=== PATIENT | female | born 1990 | race American Indian/Alaskan Native ===

== ENCOUNTER 2018-01-06 21:53 | Inpatient (IN) | payer OTHER ==
[2018-01-06 22:33] VITALS: BMI 32.5
[2018-01-06 22:54] LABS: SQUAMOUS EPITHIAL 9 /hpf (0-5); URINE BACTERIA RARE (<OCC); URINE BILIRUBIN NEGATIVE (NEGATIVE); URINE BLOOD NEGATIVE (NEGATIVE); URINE CLARITY Hazy (Clear); URINE COLOR Yellow (YELLOW); URINE GLUCOSE (UA) NORMAL (Normal); URINE LEUKOCYTE ESTERASE 2+ Leu/uL (Negative); URINE PROTEIN NEGATIVE (NEGATIVE)
[2018-01-06] MEDS ORDERED: Lactated Ringer's 1,000 ML IV ONE (23:34)
[2018-01-06] MEDS ORDERED: Penicillin G 5 Million Unit Vial IVPB ONE (23:34)
[2018-01-06] MEDS ORDERED: Lactated Ringer's 1,000 ML IV SCH (23:45)
[2018-01-07] MEDS ORDERED: Penicillin G 5 Million Unit Vial IVPB ONE (00:03)
[2018-01-07 00:29] LABS: BASO % 0.1 % (0.0-2.0); EOS # 0.1 K/uL (0.0-0.7); EOS % 0.9 % (0.0-4.0); HEMOGLOBIN 8.1 g/dL (11.0-16.0); LYMPH # 3.3 K/uL (1.0-4.3); LYMPH % 30.4 % (20.0-40.0); MEAN CELL VOLUME 62.1 fL (81.0-99.0); MEAN CORPUSCULAR HEMOGLOBIN 19.3 pg (27.0-31.0); MEAN CORPUSCULAR HGB CONC 31.1 g/dL (33.0-37.0); MEAN PLATELET VOLUME 7.8 fL (7.2-11.7); MONO # 0.8 K/uL (0.0-0.8); MONO % 6.9 % (0.0-10.0); NEUT # 6.7 K/uL (1.8-7.0); NEUT % 61.7 % (50.0-75.0); NRBC % 0.2 % (0.0-2.0); RBC 4.17 Mil/uL (3.80-5.20); RED CELL DISTRIBUTION WIDTH 17.8 % (11.5-14.5); WHITE BLOOD COUNT 10.9 K/uL (4.8-10.8)
[2018-01-07 00:42] LABS: ALB/GLOB RATIO 1.1 (1.0-2.1); ALBUMIN 3.6 g/dL (3.5-5.0); ALT/SGPT 26 U/L (9-52); AST/SGOT 17 U/L (14-36); BLOOD UREA NITROGEN 10 mg/dL (7-17); CALCIUM 9.1 mg/dl (8.6-10.4); GFR NON-AFRICAN AMERICAN > 60
[2018-01-07 01:13] LABS: HEPATITIS B SURFACE AG Negative (NEGATIVE)
[2018-01-07 01:49] LABS: BARBITURATES, UR NEGATIVE (NEGATIVE); BENZODIAZEPINES, UR NEGATIVE (NEGATIVE); OPIATES, UR NEGATIVE (NEGATIVE); PHENCYCLIDINE, UR NEGATIVE (NEGATIVE)
--- NOTE | 2018-01-07 06:59 | OBHP ---
Datetime: 01/06/2018 23:10 IP Adm Impression: Term, intrauterine ; Intact Membranes IP Admit Plan: Admit to unit; Observation/Evaluation Admit Comment, IP Provider: 27 yo female with an IUP at 40 weeks, per patient and has no PN C records. Admits to having PNC during 1st and 2nd trimester in [facility], but she moved to [place] and not seen a nybody. Denies any significant past Medical and /surgical HX, Presented with c/o of Decrease FM and contrctions since this AM. + FM, UA showed mild Dehydration only UC's no detected per monitor but SVE /-3 Will admit for anticipated vaginal delivery Will order admit/WI labs, US Pelvic Type - PN: Adequate Extremities - PN: Normal Abdomen - PN: Normal Back - PN: Normal Breast - PN: Not Done Lungs - PN: Normal Heart - PN: Normal Thyroid - PN: Normal Neurologic - PN: Normal HEENT - PN: Normal General - PN: Normal FHR - Baseline A Provider: 140's Pool Provider: Negative Nitrazine Provider: Negative EGA AdmitDate IP: 40.0 Vital Signs Provider: Reviewed; Within Normal Limits IP Chief Complaint: Uterine contractions; Decreased movement; Maternal discomfort NICHD Variability Prov Fetus A: Moderate 6-25bpm NICHD Accel Fetus A IP Provider: 10X10 FHR Category Provider Fetus A: Category I NICHD Decel Fetus A IP Provider: None Dilatation, Provider: 4 Effacement, Provider: 80 Station, Provider: -3 Genitourinary Exam: Normal DTRs - PN: Normal
--- NOTE | 2018-01-07 08:28 | US ---
PROCEDURE: HISTORY: LMP 03/16/2017 COMPARISON: None TECHNIQUE: Transabdominal scanning of the maternal pelvis and a 2nd/ 3rd trimester with image documentation FINDINGS: Fetus: Single intrauterine gestation heart rate: Present at 151 beats per minute presentation: Cephalic Placenta: Posterior and right fundal - -more than 2 cm away from the internal cervical os. This is based on further compensation with the examining technologist without previa or abruption Amniotic fluid : Little amniotic fluid is seen between the large gestation: Nevertheless the NICOLLE is 10.10 cm -within normal limits. anatomy: Limited due to late gestation. biometrics: Gestational age by ultrasound: 37 weeks 1 day 2 weeks 4 days. Estimated weight: 3086 462g Maternal factors: Uterus: Unremarkable. No myometrial masses Cervix:3.8 cm length and closed Free fluid: None Biophysical profile: Breathin Gross body movements: 2 Limb tone: 2 Amniotic Fluid: 2 Total biophysical profile: 12/23 IMPRESSION: Single intrauterine gestation with normal cardiac activity. presentation - cephalic. No previa . Biophysical profile 12/23 Concordant results (preliminary interpretation) provided by [facility].
[2018-01-07] MEDS ORDERED: Oxytocin 30 UNIT 30 UNITS/500 ML BAG IV ONE ×2 (10:16→10:47)
[2018-01-07] MEDS ORDERED: Bupivacaine HCl/FentaNYL Cit 100 ML EPI ONE (12:54)
[2018-01-07] MEDS ORDERED: Lidocaine 2% MPF (5 ml) Inj ONE (13:23)
[2018-01-07] MEDS ORDERED: Benzocaine/Menthol 20%-0.5% Topical Spray (60 ml) TOP PRN (13:32)
[2018-01-07] MEDS ORDERED: Oxycodone/Acetaminophen 5/325 mg Tab PO PRN (13:32)
--- NOTE | 2018-01-07 13:39 | OBDS ---
DELIVERY PERSONNEL Delivery Doctor: DR WILCOX Quality Tech: Amelia Baum RN Anesthesiologist: DR MCCABE MATERNAL INFORMATION Delivery Anesthesia: Local; Epidural Medications in Delivery: PITOCIN 20UNITS 1000ML. Placenta Cultured: No Maternal Complications: None Provider Comments: Pt received epidural and c/.o pressure. On exam pt was fully dilated. Head was de livered with involuatary pushing. Loose cord noted.Wasn't unable to reduce. Rest of the body deliverd spontaneously with out complications. Cord was clamped and cut after one min and oral suction of the baby.Mid perineal 1 st degree laceration noted and repaired with 2-0 vicryl with lidocain after the delivery pf the placenta. LABOR SUMMARY EDC: 01/06/2018 00:00 No. Babies in Womb: 1 Attempted: No Labor Anesthesia: Epidural LABOR INFORMATION Reason for Induction: Not Applicable Complete Dilatation: 01/07/2018 13:10 Group B Beta Strep: Done, Result Unknown Antibiotics # of Doses: 3 Antibiotics Time of Last Dose: 01/07/2018@ 10.00 Steroids Given: None Reason Steroids Not Administered: Not Applicable MEMBRANES Membranes Rupture Method: Spontaneous Rupture of Membranes: 01/07/2018 12:55 Length of Rupture (hrs): 0.30 Amniotic Fluid Color: Clear Amniotic Fluid Amount: Small Amniotic Fluid Odor: Normal STAGES OF LABOR Stage 2 hrs: 0 Stage 2 min: 3 VAGINAL DELIVERY Episiotomy: None Laceration Extension: First Degree Laceration Type: Perineal Laceration Repair: Yes Laceration Repair Note: Repaired with 2-0 Vicryl Initial Vag Sponge Count: 10 Final Vag Sponge Count: 10 Initial Vag Sharps Count: 1 Final Vag Sharps Count: 1 Sponge Count Correct: Yes Sharps Count Correct: Yes BABY A INFORMATION Infant Delivery Date/Time: 01/07/2018 13:13 Method of Delivery: Vaginal Born in Route : No : N/A Forceps: N/A SHOULDER DYSTOCIA BABY A Delivery Date/Time: 01/07/2018 13:13
[2018-01-07 16:00] LABS: RAPID PLASMA REAGIN NONREACTIVE (NONREACTIVE)
[2018-01-08 07:45] LABS: BASO % 0.3 % (0.0-2.0); EOS # 0.1 K/uL (0.0-0.7); EOS % 0.4 % (0.0-4.0); HEMOGLOBIN 7.8 g/dL (11.0-16.0); LYMPH % 23.2 % (20.0-40.0); MEAN CELL VOLUME 62.3 fL (81.0-99.0); MEAN CORPUSCULAR HEMOGLOBIN 19.1 pg (27.0-31.0); MEAN CORPUSCULAR HGB CONC 30.7 g/dL (33.0-37.0); MEAN PLATELET VOLUME 8.7 fL (7.2-11.7); MONO # 0.8 K/uL (0.0-0.8); NEUT # 9.1 K/uL (1.8-7.0); NEUT % 70.1 % (50.0-75.0); RBC 4.06 Mil/uL (3.80-5.20); RED CELL DISTRIBUTION WIDTH 17.6 % (11.5-14.5); WHITE BLOOD COUNT 12.9 K/uL (4.8-10.8)
--- NOTE | 2018-01-08 08:39 | OBPPN ---
Datetime: 01/08/2018 07:44 PP Pain Prov: Within normal limits PP Nausea Prov: Denies PP Flatus Prov: Yes PP BM Prov: No PP Breasts Prov: Normal PP Heart Prov: Normal PP Lungs Prov: Normal PP Abdomen/Uterus Prov: Normal PP Vulva/Perineum Prov: Normal PP Extremities Prov: Normal PP C/S Incision Prov: Not Applicable PP Progress Prov: Normal PP Impression Prov: Normal progression PP Plan Prov: Continue present management PP Progress Note Prov: s: no c/o; +gas. tolerating reg diet. pain controlled with meds i: ppd1 cd doing well little care anemia p: rx [id number] on d/c home IP PP Procedures: None Vital Signs Provider PP: Within Normal Limits
[2018-01-09 07:14] LABS: BASO % 0.3 % (0.0-2.0); EOS # 0.2 K/uL (0.0-0.7); EOS % 1.7 % (0.0-4.0); HEMOGLOBIN 8.2 g/dL (11.0-16.0); LYMPH # 3.7 K/uL (1.0-4.3); LYMPH % 30.2 % (20.0-40.0); MEAN CELL VOLUME 62.8 fL (81.0-99.0); MEAN CORPUSCULAR HEMOGLOBIN 18.9 pg (27.0-31.0); MEAN CORPUSCULAR HGB CONC 30.1 g/dL (33.0-37.0); MEAN PLATELET VOLUME 7.9 fL (7.2-11.7); MONO # 0.7 K/uL (0.0-0.8); MONO % 6.2 % (0.0-10.0); NEUT # 7.5 K/uL (1.8-7.0); NEUT % 61.6 % (50.0-75.0); NRBC % 0.3 % (0.0-2.0); RBC 4.34 Mil/uL (3.80-5.20); RED CELL DISTRIBUTION WIDTH 18.5 % (11.5-14.5); WHITE BLOOD COUNT 12.1 K/uL (4.8-10.8)
[2018-01-09] MEDS ORDERED: Measles, Mumps, and Rubella 0.5 ML VIAL SC ONE (13:11)
--- NOTE | 2018-01-09 19:05 | OBPPN ---
Datetime: 01/09/2018 14:50 PP Pain Prov: Within normal limits PP Nausea Prov: Denies PP Breasts Prov: Not Done PP Heart Prov: Normal PP Lungs Prov: Normal PP Abdomen/Uterus Prov: Normal PP Lochia Prov: Normal PP Vulva/Perineum Prov: Normal PP CVA Tenderness Prov: Normal PP Extremities Prov: Normal PP C/S Incision Prov: Not Applicable PP Progress Prov: Normal PP Impression Prov: Normal progression PP Plan Prov: Discharge PP Progress Note Prov: PPD # 2 S/P without complications PP H_H 8.2/27.2 / B+ Acute Anemia from Acute Blood loss Stable and Satisfactory conditio and recovery Will Discharge home IP PP Procedures: None Vital Signs Provider PP: Reviewed; Within Normal Limits
--- NOTE | 2018-01-09 19:10 | OBDCSUM ---
Datetime: 01/09/2018 11:36 Discharged to, Provider: Home Follow up at, Provider: anay Disch Instr Activity: Normal activity Disch Instr Diet: Regular Discharge Instructions, Provider: Routine instructions given Discharge Diagnosis, Provider: Term Delivered Discharge Time: 01/09/2018 16:15 Follow up in weeks, Provider: 6 weeks Disch Referrals: None Contraception discussed, Prov: Yes Disch Activity Restrictions: No driving; Minimize stair-climbing; No sexual activity; Nothing in vag yonas - [place], tampons, douche Discharge Comment, Provider: PPD # 2 S/P without complications PP H_H 8.2/27.2 / B+ Acute Anemia from Acute Blood loss Stable and Satisfactory conditio and recovery Will Discharge home with instructions and Rx's for Motrin, Fe and Colace Advised to increase po water and fiber intake Will continue PNV daily x 3-4 months Continue Pelvic Rest x 3-4 months Contraception after Delivery: Undecided
[2018-01-09 21:18] VITALS: BP 130/85; PULSE 92; RESP 18; TEMP 98.3; O2SAT 99
== END 2018-01-09 16:15 | disposition home or self-care (01) | DRG 775 ==
LOC: C.EROB 21:53 → C.4D 23:07 → C.4M 01-07 15:40
PROVIDERS: ADMIT Obstetrics & Gynecology; ATTEND Obstetrics & Gynecology
PROC: 10E0XZZ Delivery of Products of Conception, External Approach (ICD-10-PCS; principal; 2018-01-07)
PROC: 0HQ9XZZ Repair Perineum Skin, External Approach (ICD-10-PCS; 2018-01-07)
DX: O36.8130 Decreased fetal movements, third trimester, not applicable or unspecified (principal); D62 Acute posthemorrhagic anemia; O90.81 Anemia of the puerperium; O70.0 First degree perineal laceration during delivery; E86.0 Dehydration; Z3A.40 40 weeks gestation of pregnancy; Z37.0 Single live birth

== ENCOUNTER 2018-09-27 20:07 | Emergency (ER) | payer SELFPAY ==
[2018-09-27 20:07] VITALS: BMI 32.5
[2018-09-27 20:28] VITALS: BP 118/82; PULSE 84; TEMP 98.9; O2SAT 96
--- NOTE | 2018-09-27 21:15 | C.PDOC ---
History Of Present Illness 28 year old female presents to the ED c/o sore throat, difficulty swallowing and swollen tonsils for the past 2 days. Patient reports she has not taken any medications for her symptoms. Patient denies fever, chills, SOB, facial swelling, wheezing, recent travel, sick contacts. Time Seen by Provider: 09/27/18 20:35 Chief Complaint (Nursing): ENT Problem History Per: Patient History/Exam Limitations: None Onset/Duration Of Symptoms: Days (2) Current Symptoms Are (Timing): Still Present Quality (Mouth/Throat): Tenderness, Swelling Anticoagulant/Antiplatlet Use?: No Recent Aspirin Use: No Past Medical History Reviewed: Historical Data, Nursing Documentation, Vital Signs Vital Signs: Last Vital Signs Temp 98.9 F 09/27/18 20:26 Pulse 84 09/27/18 20:26 Resp 14 09/27/18 20:26 BP 118/82 09/27/18 20:26 Pulse Ox 96 09/27/18 20:26 Primary Care Provider: FAMILY PROVIDER,NO - Medical History PMH: No Chronic Diseases Denies: Depression, Diabetes, HTN Surgical History: No Surg Hx - [facility] Procedures DELIVERY OF PRODUCTS OF CONCEPTION, EXTERNAL APPROACH (01/06/18) REPAIR PERINEUM SKIN, EXTERNAL APPROACH (01/06/18) Family History: States: Unknown Family Hx - Social History Hx Alcohol Use: No Hx Substance Use: No Review Of Systems Constitutional: Negative for: Fever, Chills, Weakness ENT: Positive for: Throat Pain, Throat Swelling. Negative for: Mouth Swelling Respiratory: Negative for: Cough, Shortness of Breath, Wheezing Gastrointestinal: Negative for: Nausea, Vomiting Musculoskeletal: Negative for: Neck Pain Skin: Negative for: Rash Neurological: Negative for: Headache Physical Exam - Physical Exam Appears: Well, Non-toxic, No Acute Distress Skin: Normal Color, Warm, Dry Head: Atraumatic, Normacephalic Eye(s): bilateral: Normal Inspection, PERRL, EOMI Ear(s): Bilateral: Normal Nose: Normal Oral Mucosa: Moist Throat: No Exudate, Other (bilateral tonsil enlargement. airway patent) Neck: Normal ROM, Supple Chest: Symmetrical Respiratory: No Accessory Muscle Use, Other (normal inspiratory effort) Neurological/Psych: Oriented x3, Normal Speech Gait: Steady ED Course And Treatment O2 Sat by Pulse Oximetry: 96 (ON RA) Pulse Ox Interpretation: Normal Medical Decision Making Medical Decision Making: Plan: * Amoxicillin 500 mg PO * Motrin 800 mg PO Patient was given first dose of antibiotics in the ED, and prescribed more to finish at home. Patient advised to follow up with PMD. Disposition Counseled Patient/Family Regarding: Diagnosis, Need For Followup, Rx Given - Disposition Disposition: HOME/ ROUTINE Disposition Time: 21:14 Condition: STABLE Prescriptions: Amoxicillin 500 mg PO TID #15 tablet Ibuprofen [Motrin Tab] 600 mg PO TID #21 tab Instructions: Sore Throat, Adult (DC) Forms: General Discharge Instructions, [employer] (Thai), Work Excuse - Clinical Impression Clinical Impression: Acute tonsillitis - PA / RESEARCH INVESTIGATOR / Resident Statement MD/DO has reviewed & agrees with the documentation as recorded. - Scribe Statement The provider has reviewed the documentation as recorded by the Scribe Kareem Bragg All medical record entries made by the Scribe were at my direction and personally dictated by me. I have reviewed the chart and agree that the record accurately reflects my personal performance of the history, physical exam, medical decision making, and the department course for this patient. I have also personally directed, reviewed, and agree with the discharge instructions and disposition.
[2018-09-27 21:40] VITALS: RESP 20
== END 2018-09-27 21:39 | disposition home or self-care (01) ==
LOC: C.ER 20:07
DX: J03.90 Acute tonsillitis, unspecified (principal)